=== PATIENT | female | born 1995 | race Caucasian/White ===

== ENCOUNTER 2017-06-26 22:29 | Observation (INO) | payer OTHER ==
[2017-06-26] MEDS ORDERED: IOPAMIDOL (ISOVUE-300) 100 ML BTL ONE (23:14)
[2017-06-26 23:34] LABS: % IMMATURE GRANULYOCYTES 0.2 % (0.0-1.1); ABSOLUTE IMMATURE GRANULOCYTES 0.01 10^3/uL (0.00-0.10); ADD DIFF? NO; ADD MORPH? NO; ADD SCAN? NO; ATYPICAL LYMPHOCYTE FLAG 20 (0-99); FRAGMENT RBC FLAG 0 (0-99); HEMATOCRIT 37.5 % (38.0-47.0); HEMOGLOBIN 12.6 g/dL (12.6-16.3); LEFT SHIFT FLG 0 (0-99); LIPEMIA HEMOLYSIS FLAG 80 (0-99); MEAN CELL HEMOGLOBIN 30.4 pg (27.9-34.1); MEAN CELL HEMOGLOBIN CONCENTR. 33.6 g/dL (32.4-36.7); MEAN CELL VOLUME 90.6 fL (81.5-99.8); MEAN PLATELET VOLUME 10.1 fL (8.7-11.7); PLATELET CLUMPS FLAG 10 (0-99); PLATELET COUNT 212 10^3/uL (150-400); RED BLOOD CELL COUNT 4.14 10^6/uL (4.18-5.33); RED CELL DISTRIBUTION WIDTH 13.1 % (11.5-15.2)
[2017-06-26 23:50] LABS: ALANINE AMINOTRANSFERASE 23 IU/L (9-52); ALBUMIN 4.7 g/dL (3.5-5.0); ALKALINE PHOSPHATASE 50 IU/L (38-126); ANION GAP 14 mEq/L (8-16); ASPARTATE AMINOTRANSFERASE 23 IU/L (14-46); BILIRUBIN,TOTAL 0.7 mg/dL (0.1-1.4); BILIRUBIN-CONJUGATED 0.2 mg/dL (0.0-0.5); BILIRUBIN-UNCONJUGATED 0.5 mg/dL (0.0-1.1); CALCIUM 9.5 mg/dL (8.5-10.4); CARBON DIOXIDE 22 mEq/l (22-31); CHLORIDE 104 mEq/L (97-110); CREATININE 0.7 mg/dL (0.6-1.0); GLOMERULAR FILTRATION RATE > 60; GLUCOSE 86 mg/dL (70-100); POTASSIUM 3.3 mEq/L (3.5-5.2); SODIUM 140 mEq/L (134-144); TOTAL PROTEIN 7.8 g/dL (6.3-8.2)
[2017-06-27] MEDS ORDERED: MAG HYDROX/AL HYDROX/SIMETH 30 ML UDCUP PO ONE (00:45)
[2017-06-27] MEDS ORDERED: LIDOCAINE 2% VISCOUS 15 ML UDCUP PO ONE (00:45)
[2017-06-27] MEDS ORDERED: LIDOCAINE 2% JELLY 5 ML TUBE ONE (00:47)
[2017-06-27] MEDS ORDERED: MAG HYDROX/AL HYDROX/SIMETH 30 ML UDCUP ONE (00:47)
--- NOTE | 2017-06-27 01:14 | EDPHY ---
H & P Stated Complaint: s/p bowel resection 6 weeks ago, sudden onset of abd pain 1845 Time Seen by Provider: 06/26/17 22:53 HPI/ROS: Chief Complaint: Abdominal pain HPI: 22-year-old female presenting with sudden onset abdominal pain at 6:30 a.m. this evening. Patient is approximately 6 weeks status post appendectomy which was complicated a week later by ischemic small-bowel found on exploratory laparotomy. Patient then subsequently developed a pulmonary embolus and is currently on anticoagulation. Patient states that her pain tonight started similarly to when she had her ischemic bowel. This was not appreciated on CT scan. She denies any fevers or chills. No nausea or vomiting. At worst pain is a 7/10. No diarrhea or constipation. She did have last bowel movement at 1 o'clock in the afternoon. ROS: 10 point Review of Systems is negative except as noted in the HPI. PMH: Appendectomy, PE, ischemic bowel, depression Medications on Xarelto, citalopram Social History: No smoking, no alcohol, no recreational drug use Family History: non-contributory Physical Exam: Gen: Awake, Alert, No Distress HEENT: Nose: no rhinorrhea Eyes: PERRLA, EOMI Mouth: Moist mucosa Neck: Supple, no JVD Chest: nontender, lungs clear to auscultation Heart: S1, S2 normal, no murmur Abd: Soft, moderate diffuse tenderness, mild Back: no CVA tenderness, no midline tenderness Ext: no edema, non-tender Skin: no rash Neuro: CN II-XII intact, Sensation grossly intact, Strength 5/5 in bilateral upper and lower extremities - Personal History LMP (Females 10-55): 1-7 Days Ago Current Tetanus Diphtheria and Acellular Pertussis (TDAP): Yes - Medical/Surgical History Hx Asthma: No Hx Chronic Respiratory Disease: No Hx Diabetes: No Hx Cardiac Disease: No Hx Renal Disease: No Hx Cirrhosis: No Hx Alcoholism: No Hx HIV/AIDS: No Hx Splenectomy or Spleen Trauma: No Other PMH: appendectomy- complications adhesions bowel resection, depression, PE 2017 - Social History Smoking Status: Never smoked Constitutional: Initial Vital Signs Temperature (C) 37 C 06/26/17 22:42 Heart Rate 63 06/26/17 22:42 Respiratory Rate 18 06/26/17 22:42 Blood Pressure 118/76 06/26/17 22:42 O2 Sat (%) 99 06/26/17 22:42 O2 Delivery Mode Room Air Allergies/Adverse Reactions: adhesive Allergy (Verified 06/26/17 22:41) Home Medications: Medication Instructions Recorded Citalopram 06/26/17 Xarelto 06/26/17 Medical Decision Making - Diagnostics Imaging Results: Imaging Impressions Abdomen CT 06/26/17 23:11 Impression: 1. Minimal prominence of jejunum, which could be related to ileus, without definite evidence of obstruction. 2. Small volume of ascites with minimal nonspecific mesenteric stranding, with with no visible abscess. 3. Moderate stool in the proximal colon. 4. 4 mm right lower lobe nodule. If the patient is a smoker or is high risk, unenhanced low dose chest CT for follow up in 12 months is considered optional. Otherwise, no further follow up is needed per Fleischner Society criteria. 5. Additional findings as above. Findings discussed with Blaise Thompson MD 06/27/2017 at 0:16. Imaging: Discussed imaging studies w/ technical training specialist Radiologist ED Course/Re-evaluation: Case discussed with Dr. Barker, general surgery. CT scan is negative. Given the patient's prior presentation for ischemic bowel which was not visualized on CT the parents are very concerned. Dr. Barker will see the patient in the emergency department. Patient be admitted to under observation to Dr. Barker for serial examinations and further evaluation. - Data Points Laboratory Results: Laboratory Results 06/26/17 23:20 06/26/17 23:20 06/27/17 06/26/17 06/26/17 00:50 23:20 23:20 WBC RBC Hgb Hct MCV MCH MCHC RDW Plt Count MPV Neut % (Auto) Lymph % (Auto) [place] % (Auto) Eos % (Auto) Baso % (Auto) Nucleat RBC Rel Count Absolute Neuts (auto) Absolute Lymphs (auto) Absolute Monos (auto) Absolute Eos (auto) Absolute Basos (auto) Absolute Nucleated RBC Immature Gran % Immature Gran # VBG Lactic Acid 0.9 mmol/L mmol/L (0.7-2.1) Sodium 140 mEq/L mEq/L (134-144) Potassium 3.3 mEq/L L mEq/L (3.5-5.2) Chloride 104 mEq/L mEq/L (97-110) Carbon Dioxide 22 mEq/l mEq/l (22-31) Anion Gap 14 mEq/L mEq/L (8-16) BUN 11 mg/dL mg/dL (7-23) Creatinine 0.7 mg/dL mg/dL (0.6-1.0) Estimated GFR > 60 Glucose 86 mg/dL mg/dL (70-100) Calcium 9.5 mg/dL mg/dL (8.5-10.4) Total Bilirubin 0.7 mg/dL mg/dL (0.1-1.4) Conjugated Bilirubin 0.2 mg/dL mg/dL (0.0-0.5) Unconjugated Bilirubin 0.5 mg/dL mg/dL (0.0-1.1) AST 23 IU/L IU/L (14-46) ALT 23 IU/L IU/L (9-52) Alkaline Phosphatase 50 IU/L IU/L (38-126) Total Protein 7.8 g/dL g/dL (6.3-8.2) Albumin 4.7 g/dL g/dL (3.5-5.0) Lipase 194 IU/L IU/L (23-300) Beta HCG, Qual NEGATIVE 06/26/17 23:20 WBC 5.51 10^3/uL 10^3/uL (3.80-9.50) RBC 4.14 10^6/uL L 10^6/uL (4.18-5.33) Hgb 12.6 g/dL g/dL (12.6-16.3) Hct 37.5 % L % (38.0-47.0) MCV 90.6 fL fL (81.5-99.8) MCH 30.4 pg pg (27.9-34.1) MCHC 33.6 g/dL g/dL (32.4-36.7) RDW 13.1 % % (11.5-15.2) Plt Count 212 10^3/uL 10^3/uL (150-400) MPV 10.1 fL fL (8.7-11.7) Neut % (Auto) 41.5 % % (39.3-74.2) Lymph % (Auto) 46.5 % H % (15.0-45.0) [place] % (Auto) 9.1 % % (4.5-13.0) Eos % (Auto) 2.2 % % (0.6-7.6) Baso % (Auto) 0.5 % % (0.3-1.7) Nucleat RBC Rel Count 0.0 % % (0.0-0.2) Absolute Neuts (auto) 2.29 10^3/uL 10^3/uL (1.70-6.50) Absolute Lymphs (auto) 2.56 10^3/uL 10^3/uL (1.00-3.00) Absolute Monos (auto) 0.50 10^3/uL 10^3/uL (0.30-0.80) Absolute Eos (auto) 0.12 10^3/uL 10^3/uL (0.03-0.40) Absolute Basos (auto) 0.03 10^3/uL 10^3/uL (0.02-0.10) Absolute Nucleated RBC 0.00 10^3/uL 10^3/uL (0-0.01) Immature Gran % 0.2 % % (0.0-1.1) Immature Gran # 0.01 10^3/uL 10^3/uL (0.00-0.10) VBG Lactic Acid Sodium Potassium Chloride Carbon Dioxide Anion Gap BUN Creatinine Estimated GFR Glucose Calcium Total Bilirubin Conjugated Bilirubin Unconjugated Bilirubin AST ALT Alkaline Phosphatase Total Protein Albumin Lipase Beta HCG, Qual Medications Given: Hydromorphone HCl (Dilaudid) 0.2 - 0.4 mg IVP Q4 PRN PRN Reason: Pain, Severe Unable to Take PO Stop: 07/07/17 01:20 Last Admin: 06/27/17 03:06 Dose: 0.4 mg Potassium Chloride/Dextrose/Sod Cl (D5w 1/2 Ns W/ 20 Kcl/L) 1,000 mls @ 125 mls /hr IV CONT GINO Stop: 12/24/17 01:29 Last Admin: 06/27/17 02:26 Dose: 1,000 mls Pantoprazole Sodium 40 mg/ (Sodium Chloride) 100 mls @ 200 mls/hr IV BID GINO Stop: 12/24/17 02:29 Last Admin: 06/27/17 02:27 Dose: 100 mls Ondansetron HCl (Zofran) 4 mg IVP Q4 PRN PRN Reason: Nausea/Vomiting, Use 1st Stop: 12/24/17 01:20 Last Admin: 06/27/17 02:04 Dose: 4 mg Discontinued Medications Al Hydroxide/Mg Hydroxide (Maalox Susp) 30 ml PO EDNOW ONE Stop: 06/27/17 00:46 Last Admin: 06/27/17 00:51 Dose: 30 ml Sodium Chloride (Ns) 1,000 mls @ 0 mls/hr IV ONCE ONE; Wide Open PRN Reason: Protocol Stop: 06/27/17 01:19 Last Admin: 06/27/17 01:20 Dose: 1,000 mls Pantoprazole Sodium 40 mg/ (Sodium Chloride) 100 mls @ 200 mls/hr IV BID GINO Stop: 12/24/17 01:29 Last Admin: 06/27/17 01:33 Dose: 100 mls Lidocaine (Lidocaine 2% Viscous) 5 ml PO EDNOW ONE Stop: 06/27/17 00:46 Last Admin: 06/27/17 00:51 Dose: 5 ml Morphine Sulfate (Morphine) 4 mg IVP EDNOW ONE Stop: 06/27/17 00:14 Last Admin: 06/27/17 00:16 Dose: 4 mg Departure - Departure Disposition: [facility] Inpatient Acute Clinical Impression: Abdominal pain Condition: Fair
[2017-06-27] MEDS ORDERED: NS 1,000 ML IV ONE (01:18)
[2017-06-27] MEDS ORDERED: PANTOPRAZOLE SODIUM 40 MG VIAL ONE (01:27)
[2017-06-27] MEDS ORDERED: NS 100 ML BAG IV ONE (01:27)
--- NOTE | 2017-06-27 01:28 | PDGENHP ---
History & Physical Chief Complaint: EPIGASTRIC INTERMITTEN SHARP STABBING PAINS History of Present Illness: 22 FEMALE 6 WEEKS SP LAP APPE COMPLICATED 5 DAYS LATER BY BOWELL IN SBO. NOW WITH A FEW HRS UPPER ABD PAIN. NO EMESIS, FEVER, DIARHEA OR TRAUMA. NO SX. PT HAS IUD IN PLACE. NORMAL BM TODAY. CT NONDIAGNOSTIC. WBC AND LACTATE WNL. AFEBRILE Pertinent Past, Social, Family History: APPE AND SMALL BOWELL RESECTION. DEPRESSION. NKA. MEDS CITALOPRAM. ROS - ON 10 PT REVIEW. NONSMOKER. NO RECENT ETOH. FAM HX - Relevant Physical Exam: HEENT: NO ICTERUS OR ADENOPATHY, NO ORAL LESIONS. PEERLA , NECK SUPPLE. CHEST CLEAR. COR RR. ABD SOFT, +BS, MILDLY TENDER WO PERITONEAL SX. PELVIC DEFERRED. EXTREM OK. SKIN OK. NEURO PHYSIOLOGIC. PSYCH ORIENTED, ALERT, APPROPRIATE Cardiorespiratory Assessment: COMPLICATED HX WITH UPPER ABD PAIN OF UNCEERTAIN ETIOLOGY. CONSIDER GASTRITIS OR PEPTIC DISEASE. PLAN IVS, OBS,PROTONIX, FU TESTS/ CONSIDER EGD
[2017-06-27] MEDS ORDERED: PANTOPRAZOLE SODIUM 40 MG in NS 100 ML IV SCH (01:30)
--- NOTE | 2017-06-27 01:39 | SOAPPROG ---
SOAP Progress Note Assessment/Plan: Assessment: ADDENDUM TO HX: PT ON XARELTO FOR PE Plan:HOLD FOR NOW 06/27/17 01:38 Objective: Vital Signs Temp Pulse Resp BP Pulse Ox 37 C 52 L 16 108/53 L 96 06/26/17 22:42 06/27/17 00:51 06/27/17 00:51 06/27/17 00:51 06/27/17 00:51 ICD10 Worksheet Patient Problems: Problems Problem Status Onset Abdominal pain Acute
[2017-06-27] MEDS ORDERED: ONDANSETRON 4 MG/2 ML VIAL ONE ×2 (02:03→12:57)
[2017-06-27] MEDS: ONDANSETRON 4 MG/2 ML VIAL IVP PRN ×3 (02:04→10:19)
[2017-06-27] MEDS: D5W 1/2 NS W/ 20 KCl/L 1,000 ML IV SCH ×3 (02:26→20:08)
[2017-06-27] MEDS: PANTOPRAZOLE SODIUM 40 MG in NS 100 ML IV SCH ×3 (02:27→20:08)
[2017-06-27] MEDS: HYDROmorphONE/DILAUDID 1 MG/ML INJ IVP PRN ×4 (03:06→14:26)
[2017-06-27 05:09] LABS: % IMMATURE GRANULYOCYTES 0.3 % (0.0-1.1); ABSOLUTE IMMATURE GRANULOCYTES 0.02 10^3/uL (0.00-0.10); ADD DIFF? NO; ADD MORPH? NO; ADD SCAN? NO; ATYPICAL LYMPHOCYTE FLAG 0 (0-99); FRAGMENT RBC FLAG 0 (0-99); HEMATOCRIT 35.5 % (38.0-47.0); HEMOGLOBIN 11.7 g/dL (12.6-16.3); LEFT SHIFT FLG 0 (0-99); LIPEMIA HEMOLYSIS FLAG 80 (0-99); MEAN CELL HEMOGLOBIN 30.2 pg (27.9-34.1); MEAN CELL VOLUME 91.5 fL (81.5-99.8); MEAN PLATELET VOLUME 10.1 fL (8.7-11.7); PLATELET CLUMPS FLAG 0 (0-99); PLATELET COUNT 183 10^3/uL (150-400); RED BLOOD CELL COUNT 3.88 10^6/uL (4.18-5.33); RED CELL DISTRIBUTION WIDTH 13.1 % (11.5-15.2)
[2017-06-27 05:33] LABS: ALANINE AMINOTRANSFERASE 25 IU/L (9-52); ALBUMIN 3.8 g/dL (3.5-5.0); ALKALINE PHOSPHATASE 40 IU/L (38-126); AMYLASE < 30 IU/L (30-110); ASPARTATE AMINOTRANSFERASE 19 IU/L (14-46); BILIRUBIN,TOTAL 0.7 mg/dL (0.1-1.4); BILIRUBIN-CONJUGATED 0.2 mg/dL (0.0-0.5); BILIRUBIN-UNCONJUGATED 0.5 mg/dL (0.0-1.1); TOTAL PROTEIN 6.7 g/dL (6.3-8.2)
--- NOTE | 2017-06-27 09:58 | SOAPPROG ---
SOAP Progress Note Assessment/Plan: Assessment: 22yo female with recent history of lap appy complicated by bowel in SBO 5 days later, presenting now with upper abdominal pain. Abd XR demonstrating ileus Afebrile WBC wNL Will consult GI NPO Cont pain control D/c NC O2, sating 99% on 1L S: Patient complaining of nausea with emesis today. Vomit is clear and spit- like. Passing gas, no BM. Pain controlled. O: Afebrile Lying in bed, NAD MMM Lungs CTAB, no increased WOB RRR Abdomen softly distended. No guarding. Mild TTP. +BS Objective: Vital Signs Temp Pulse Resp BP Pulse Ox 36.6 C 61 16 116/73 100 06/27/17 08:00 06/27/17 08:00 06/27/17 08:00 06/27/17 08:00 06/27/17 08:00 Laboratory Results 06/27/17 04:49 06/26/17 06/27/17 06/28/17 05:59 05:59 05:59 Intake Total 1000 Output Total 100 Balance 1000 -100 ICD10 Worksheet Patient Problems: Problems Problem Status Onset Abdominal pain Acute
--- NOTE | 2017-06-27 10:03 | ASMTCASEMG ---
Living Arrangements What is your living Answers: WIth Both Parents/1 Home arrangement? Who do you live with? Type Of Residence What kind of residence do Answers: House you live in? Discharge Plan Comments Coordination Status Comments Notes: Patient is a 22yo woman who lives with her parents in [facility]. She was admitted for abdominal pain. Patient had an appendectomy 6 weeks ago which was complicated by ischemic small bowel. She then developed a pulmonary embolus and is currently on anticoagulation. Patient admitted under observation with Dr. Barker. CM will follow for d/c needs. Date Signed: 06/27/2017 10:03 AM Electronically Signed By:Melissa Sagastume
[2017-06-27] MEDS ORDERED: LR 1,000 ML IV ONE (11:36)
[2017-06-27] MEDS ORDERED: MIDAZOLAM 2 MG/2 ML VIAL ONE (12:04)
[2017-06-27] MEDS ORDERED: fentaNYL 100 MCG/2 ML INJ ONE (12:06)
[2017-06-27] MEDS ORDERED: LIDOCAINE 2% 100 MG/5 ML SYR ONE (12:07)
[2017-06-27] MEDS ORDERED: PROPOFOL/EMULSION 500 MG/50 ML BOTTLE IV ONE (12:07)
--- NOTE | 2017-06-27 12:14 | PDANEPAE ---
ANE Past Medical History - Pulmonary History Hx Oxygen in Use at Home: No Hx Sleep Apnea: No Sleep Apnea Screening Result - Last Documented: Negative - Endocrine History Hx Diabetes: No - Chronic Pain History Chronic Pain: No ANE Review of Systems Review of Systems: ANE Patient History - Allergies Allergies/Adverse Reactions: adhesive Allergy (Verified 06/26/17 22:41) - Home Medications Home Medications: Acetaminophen [Tylenol 325mg (*)] 650 mg PO DAILY PRN 06/27/17 [Last Taken 06/26 21:00] Citalopram [CeleXA] 20 mg PO DAILY 06/27/17 [Last Taken 06/26/17] Herbals/Supplements -Info Only 1 ea PO DAILY 06/27/17 [Last Taken Unknown] Multivitamins [Multivitamin (*)] 1 each PO DAILY 06/27/17 [Last Taken Unknown] Rivaroxaban [Xarelto 10mg (*)] 20 mg PO DAILY 06/27/17 [Last Taken 06/26/17 19: 00] - NPO status NPO Since - Liquids (Date): 06/26/17 NPO Since - Liquids (Time): 16:30 NPO Since - Solids (Date): 06/26/17 NPO Since - Solids (Time): 16:30 - Smoking Hx Smoking Status: Never smoked ANE Labs/Vital Signs - Labs Result Diagrams: 06/27/17 04:49 06/26/17 23:20 - Vital Signs Blood Pressure: 127/91 Heart Rate: 77 Respiratory Rate: 20 O2 Sat (%): 99 Height: 167.64 cm Weight: 54.431 kg ANE Physical Exam - Airway Neck exam: FROM Mallampati Score: Class 2 Mouth exam: normal dental/mouth exam - Pulmonary Pulmonary: no respiratory distress - Cardiovascular Cardiovascular: regular rate and rhythym - ASA Status ASA Status: II ANE Anesthesia Plan Total IV Anesthesia: Yes Urgent/Emergent Case: Nory francisco completed preop but documented later for safe timely pt care
[2017-06-27] MEDS ORDERED: ONDANSETRON 4 MG/2 ML VIAL IVP PRN (12:22)
[2017-06-27] MEDS ORDERED: NALOXONE HCL 0.4 MG/ML INJ IVP PRN (12:22)
--- NOTE | 2017-06-27 12:22 | POSTANESTH ---
Post Anesthetic Evaluation Cardiovascular Status: Normal, Stable Respiratory Status: Normal, Stable Level of Consciousness/Mental Status: Mildly Sleepy, Arousable Pain Control: Adequate, Prn Tx Ordered Nausea/Vomiting Control: Adequate, Prn Tx Ordered Complications Possibly Related to Anesthesia: None Noted
--- NOTE | 2017-06-27 13:00 | GCON ---
[f rep st] CONSULTATION CONSULTATIVE NOTE CHIEF COMPLAINT: A 22-year-old woman with epigastric pain. HISTORY OF PRESENT ILLNESS: I have been asked to see this patient in consultation by Dr. Geronimo Barker for evaluation of upper abdominal pain. This 22-year-old woman presented to the emergency department with acute onset of abdominal pain on the day of admission. She is 6 weeks post appendectomy. Surgery was performed at [place]. Surgery was complicated by episode of ischemic small bowel requiring exploratory laparotomy and small bowel resection. She subsequently developed a pulmonary embolus and has been on Xarelto. She had done fairly well until the day of admission, when she started having pain similar to when she had ischemic bowel. She had a CT scan that was unremarkable. She had difficulty eating with nausea and some retching. Pain was severe and described as 7/10. She had no associated lower GI symptoms, no diarrhea or constipation. She did have an abdominal x-ray that showed a possible mild ileus with air-fluid levels in small bowel in the left upper quadrant of the abdomen. There was no evidence of pneumoperitoneum. CT scan of the abdomen revealed minimal prominence of the jejunum related to ileus. No evidence of obstruction. Small amount of ascites. Nonspecific mesenteric stranding with no visible abscess. Moderate stool in the proximal colon. There was a 4 mm right lower lobe nodule. Otherwise unremarkable CT scan findings. The patient was seen by Dr. Barker, did not feel that she had acute abdomen to warrant surgery at this point. Asked to see patient for further evaluation of upper abdominal pain. PAST MEDICAL HISTORY: Remarkable for appendectomy, PE, ischemic bowel, depression. MEDICATIONS: Prior to admission included Xarelto and Celexa. Medicines in the hospital: Dilaudid, Zofran, pantoprazole. SOCIAL HISTORY: Nonsmoker, nondrinker. No recreational drug use. FAMILY HISTORY: Negative. ALLERGIES: No known drug allergies. REVIEW OF SYSTEMS: Negative for 10 systems other than mentioned in HPI. PHYSICAL EXAM: VITAL SIGNS: 116/73, heart rate 61, respiratory rate 16, 100% sat on room air. 36.6. GENERAL: Very pleasant woman in no acute distress. HEENT: Normocephalic, atraumatic. EOMI. NECK: Supple. No cervical adenopathy. No thyromegaly. LUNGS: Clear. CARDIAC: Normal S1, S2. ABDOMEN : Soft, some guarding with mild diffuse tenderness. Minimal to no significant bowel sounds. EXTREMITIES: Without clubbing, cyanosis, edema. SKIN: Warm, dry, intact. NEURO: Nonfocal. Mental status: Alert and oriented x3 with normal affect. LABORATORY DATA: White count of 7.99, hemoglobin 11.7, hematocrit 35.5. Serum chemistries: Serum sodium 140, potassium 3.3, chloride 104, CO2 22. BUN of 11 , creatinine 0.7, total bilirubin 0.7. AST 23, ALT of 23, alkaline phosphatase of 50. Amylase was less than 30. Lipase was 194. Beta hCG was negative. IMPRESSION: A 22-year-old woman with recent surgical history with appendectomy complicated by small bowel ischemia and small bowel resection. Also complicated by pulmonary embolus. Patient with upper abdominal pain, discomfort , nausea with vomiting. No hematemesis. No symptoms of bleeding. Unclear etiology of upper abdominal symptoms. RECOMMENDATIONS: We will proceed with a diagnostic endoscopy for evaluation for upper tract disease, ulcerations contributing to symptoms. The patient is on anticoagulation. We will not perform any biopsies. Xarelto was held yesterday. We will do minimal intervention and proceed with a diagnostic upper endoscopy only. The patient will be scheduled for EGD later today. Thank you for allowing me to participate in the care of this patient. /[id number]/MODL MTDD
[2017-06-27] MEDS ORDERED: PROMETHAZINE HCL 25 MG/ML INJ IVP PRN (14:22)
--- NOTE | 2017-06-27 15:09 | GPN ---
[f rep st] PROCEDURE NOTE PROCEDURE: Esophagogastroduodenoscopy. PREOPERATIVE DIAGNOSES: 1. Epigastric pain. 2. Nausea, vomiting. POSTOPERATIVE DIAGNOSIS: Normal upper endoscopy. INDICATIONS: A 22-year-old woman with epigastric pain, nausea, and vomiting. Patient with past surg ical history with recent appendectomy. Surgery was complicated by small bowel ischemia. She had a s econdary surgery with small bowel resection. She also developed a PE and has been on anticoagulation , Xarelto. She was home, but started having problems with upper abdominal pain. It was sharp, stabb ing, constant. No particular alleviating factors. Difficulty eating with retching and nausea. CT s can was essentially unremarkable. Abdominal x-ray showed jejunal ileus. She presents now for endosc opy for diagnostic purposes. PHYSICAL EXAMINATION: VITAL SIGNS: Stable. LUNGS: Clear. CARDIAC: Normal S1, S2 without murmur. PERMIT: Procedure was explained to the patient. The risks and benefits of the procedure were outlin ed to the patient. Informed consent was obtained. PREOPERATIVE MEDICATIONS: Per Anesthesia. FINDINGS OF PROCEDURE: Patient was placed in the left lateral decubitus position. The GIF-180 video scope was passed in the oropharynx under direct visualization. The proximal esophagus was normal. GE junction at 40 cm. The endoscope was passed in the stomach with normal antrum and body. The endo scope was passed through the pylorus and 1st and 2nd portion of the duodenum. Duodenal sweep was nor mal. Endoscope was brought back in the stomach. Retroflexed view revealed a normal angularis, fundu s, and cardia. Endoscope was un-retroflexed and withdrawn. IMPRESSION: Normal upper endoscopy. No clear source of the patient's abdominal pain. Questionable ileus. RECOMMENDATIONS: 1. Further care per Surgery. 2. Continue IV hydration. 3. Antiemetics, consider addition of Reglan IV. Thank you for allowing me to participate in the care of this patient. /[id number]/MODL
--- NOTE | 2017-06-27 17:48 | SOAPPROG ---
SOAP Progress Note Assessment/Plan: Assessment: ADDENDUM TO HX: PT ON XARELTO FOR PE Plan:HOLD FOR NOW 06/27/17 01:38 06/27/17 17:47 PATIENT FEELS MUCH BETTER THIS AFTERNOON WITH NAUSEA CONTROL WITH PHENERGAN/EGD WAS NEGATIVE FOR ANY ESOPHAGEAL GASTRIC OR DUODENAL ABNORMALITIES WILL CONTINUE TO OBSERVE/UNCLEAR ETIOLOGY OF HER PAIN AT THIS POINT Objective: Vital Signs Temp Pulse Resp BP Pulse Ox 36.9 C 70 16 102/69 96 06/27/17 15:49 06/27/17 15:49 06/27/17 15:49 06/27/17 15:49 06/27/17 15:49 Laboratory Results 06/27/17 04:49 06/26/17 06/27/17 06/28/17 05:59 05:59 05:59 Intake Total 1000 675 Output Total 100 Balance 1000 575 ICD10 Worksheet Patient Problems: Problems Problem Status Onset Abdominal pain Acute
[2017-06-27] MEDS ORDERED: diphenhydrAMINE 25 MG CAP PO PRN (21:20)
--- NOTE | 2017-06-28 08:34 | SOAPPROG ---
SOAP Progress Note Assessment/Plan: Assessment/plan: 22 Y F admitted with sharp intermittent epigastric abd pain. s/ p lap appy complicated by ischemic bowel 5 days later, s/p laparotomy and bowel resection at outside hospital. Has been on xarelto for PE. Normal EGD yesterday. Pain resolved now. No N/V. Passing gas. Abdominal exam is benign. D/w'ed Dr. Barker this am and will get SBFT. If normal, may be able to advance diet. Dispo: pending SBFT findings. S: see above O: alert, nad mmm, no jaundice no wob rrr abd soft, NT, well healed laparotomy scar 06/28/17 08:31 Objective: Vital Signs Temp Pulse Resp BP Pulse Ox 36.9 C 62 16 94/46 L 95 06/28/17 07:43 06/28/17 07:43 06/28/17 07:43 06/28/17 07:43 06/28/17 07:43 Laboratory Results 06/27/17 04:49 06/27/17 06/28/17 06/29/17 05:59 05:59 05:59 Intake Total 1000 2775 Output Total 100 Balance 1000 5165 ICD10 Worksheet Patient Problems: Problems Problem Status Onset Abdominal pain Acute
[2017-06-28] MEDS: PANTOPRAZOLE SODIUM 40 MG in NS 100 ML IV SCH ×2 (09:14→20:05)
[2017-06-28] MEDS: D5W 1/2 NS W/ 20 KCl/L 1,000 ML IV SCH ×2 (09:14→20:05)
--- NOTE | 2017-06-28 10:46 | SOAPPROG ---
SOAP Progress Note Assessment/Plan: Assessment: ADDENDUM TO HX: PT ON XARELTO FOR PE Plan:HOLD FOR NOW 06/27/17 01:38 06/27/17 17:47 PATIENT FEELS MUCH BETTER THIS AFTERNOON WITH NAUSEA CONTROL WITH PHENERGAN/EGD WAS NEGATIVE FOR ANY ESOPHAGEAL GASTRIC OR DUODENAL ABNORMALITIES WILL CONTINUE TO OBSERVE/UNCLEAR ETIOLOGY OF HER PAIN AT THIS POINT 06/28/17 10:44 seen with neha buck pa/ much improved/ abd soft/ some flatus/ plan sbft and if ok advance diet Objective: Vital Signs Temp Pulse Resp BP Pulse Ox 36.9 C 62 16 94/46 L 95 06/28/17 07:43 06/28/17 07:43 06/28/17 07:43 06/28/17 07:43 06/28/17 07:43 Laboratory Results 06/27/17 04:49 06/27/17 06/28/17 06/29/17 05:59 05:59 05:59 Intake Total 1000 2775 50 Output Total 100 600 Balance 1000 5492 -345 ICD10 Worksheet Patient Problems: Problems Problem Status Onset Abdominal pain Acute
[2017-06-29] MEDS: PANTOPRAZOLE SODIUM 40 MG in NS 100 ML IV SCH (09:59)
--- NOTE | 2017-06-29 11:02 | SOAPPROG ---
SOAP Progress Note Assessment/Plan: Assessment: 22yo female with recent history of lap appy complicated by bowel in SBO 5 days later s/p laparotomy and bowel resection at an outside hospital, presented for this admission with upper abdominal pain. On Xerelto for PE SBFT showing ilieus without focal stricture Afebrile WBC wNL Normal diet Activity as tolerated Dispo: to home today. Note given excusing her from school for her admission. S: No complaints today. Denies pain and nausea Passing gas, no BM. Pain controlled. O: Afebrile Lying in bed, NAD MMM Lungs CTAB, no increased WOB RRR Abdomen soft. No guarding. +BS Objective: Vital Signs Temp Pulse Resp BP Pulse Ox 36.9 C 58 L 16 102/65 99 06/29/17 08:39 06/29/17 08:39 06/29/17 08:39 06/29/17 08:39 06/29/17 08:39 Laboratory Results 06/27/17 04:49 06/28/17 06/29/17 06/30/17 05:59 05:59 05:59 Intake Total 2775 500 Output Total 100 1900 Balance 2675 -1400 ICD10 Worksheet Patient Problems: Problems Problem Status Onset Abdominal pain Acute
[2017-06-29 11:15] VITALS: BP 100/58; PULSE 59; RESP 14; TEMP 98.8; O2SAT 98
--- NOTE | 2017-06-29 11:20 | ASMTCMCOM ---
CM Note CM Note Notes: No needs identified, pt to dc home w/support of parents when medically stable. CM available for any changes. Date Signed: 06/29/2017 11:19 AM Electronically Signed By:Yanira Macedo RN
--- NOTE | 2017-06-29 14:19 | ASDISCHSUM ---
Discharge Information Plan Status:Home with No Needs Medically Cleared to Leave: Discharge Date:06/29/2017 11:40 AM CM D/C Disposition:Home, Routine, Self-Care ADT D/C Disposition:Home, Routine, Self-Care Projected Discharge Date:06/29/2017 11:40 AM Transportation at D/C:Family Discharge Delay Reason: Follow-Up Date:06/29/2017 11:40 AM Discharge Slot: Final Diagnosis: Placement Information Patient Contact Information Contact Name:DEMETRIA Relationship:Father Address:[address] Work Phone: City:[place] Alternate Phone: [facility]/Zip Code:[place] [address] Email: Financial Information Financial Class:HMO and PPO Plans Primary Plan Desc:[facility] Primary Plan Number:[id number] Secondary Plan Desc: Secondary Plan Number: Assessment Information [facility] Initial CM Assessment Living Arrangements What is your living Answers: WIth Both Parents/1 Home arrangement? Who do you live with? Type Of Residence What kind of residence do Answers: House you live in? Discharge Plan Comments Coordination Status Comments Notes: Patient is a 22yo woman who lives with her parents in [facility]. She was admitted for abdominal pain. Patient had an appendectomy 6 weeks ago which was complicated by ischemic small bowel. She then developed a pulmonary embolus and is currently on anticoagulation. Patient admitted under observation with Dr. Barker. CM will follow for d/c needs. Date Signed: 06/27/2017 10:03 AM Electronically Signed By:Melissa Sagastume LCSW [facility] CM Progress Note CM Note CM Note Notes: No needs identified, pt to dc home w/support of parents when medically stable. CM available for any changes. Date Signed: 06/29/2017 11:19 AM Electronically Signed By:Yanira Macedo RN Intervention Information
== END 2017-06-29 11:40 | disposition home or self-care (01) ==
LOC: F3E 06-27 02:13
PROVIDERS: ADMIT Surgery; ATTEND Surgery
PROC: 0DJ08ZZ Inspection of Upper Intestinal Tract, Via Natural or Artificial Opening Endoscopic (ICD-10-PCS; principal; 2017-06-27 13:30)
DX: R10.13 Epigastric pain (principal); F32.9 Major depressive disorder, single episode, unspecified; Z86.711 Personal history of pulmonary embolism; Z79.01 Long term (current) use of anticoagulants
CPT/HCPCS: 43235; 74020; 74177; 74250; 96361; 96365; 96375; 99285; G0378; J1170; J2001; J2250; J2405; J2704; J3010; Q9967

== ENCOUNTER 2018-01-25 12:59 | Emergency (ER) | payer OTHER ==
[2018-01-25] MEDS ORDERED: NS 1,000 ML IV ONE ×2 (13:23)
[2018-01-25] MEDS ORDERED: ONDANSETRON 4 MG/2 ML VIAL IVP ONE (13:23)
--- NOTE | 2018-01-25 13:25 | EDPHY ---
H & P Stated Complaint: abd pain Time Seen by Provider: 01/25/18 13:22 HPI/ROS: CHIEF COMPLAINT: Abdominal pain nausea vomiting HISTORY OF PRESENT ILLNESS: 22-year-old female complaining of epigastric abdominal pain, nausea, vomiting since noon today after eating sandwich. Feels similar to prior prior ileus. She has medical history significant for remote history of laparoscopic appendectomy complicated by small bowel ischemia requiring 2nd operation for bowel resection at [facility]. No melena or hematochezia. No hematemesis. No fever or chills. No trauma. No back or flank pain. No urinary abnormality. REVIEW OF SYSTEMS: A ten point review of systems was performed and is negative with the exception of the items mentioned in the HPI PAST MEDICAL & SURGICAL HISTORY: Appendectomy, bowel resection, ileus SOCIAL HISTORY:Nonsmoker student PHYSICAL EXAM (Prior to examination, patient consented to physical exam, hands were washed and my usual and customary physical exam procedures followed) 1) GENERAL: Well-developed, well-nourished, alert and oriented. Appears uncomfortable 2) HEAD: Normocephalic, atraumatic 3) HEENT: Pupils equal, round, reactive to light bilaterally. Sclera anicteric. Nasopharynx, oropharynx, clear, no lesions. Moist mucous membranes Ears bilaterally with normal tympanic membranes. 4) NECK: Full range of motion, no meningeal signs. 5) LUNGS: Clear auscultation bilaterally, no wheezes, no rhonchi, no retractions. 6) HEART: Regular rate and rhythm, no murmur, no heave, no gallop. 7) ABDOMEN: Tender to palpation epigastrium and left upper quadrant, negative McBurney's, negative Henry's, negative Rovsing's, negative peritoneal sign, 8) MUSCULOSKELETAL: Moving all extremities, no focal areas of tenderness, no obvious trauma. No peripheral edema or discoloration. 9) BACK: No CVA tenderness, no midline vertebral tenderness, no fluctuance, no step-off, no obvious trauma, no visual or palpable abnormality. 10) SKIN: No rash, no petechiae. 11) Psychiatric: Patient is oriented X 3, there is no agitation. DIFFERENTIAL DIAGNOSIS: In no particular include but limited to acute pancreatitis, bowel obstruction, ileus - Personal History LMP (Females 10-55): 8-14 Days Ago Current Tetanus/Diphtheria Vaccine: Unsure Current Tetanus Diphtheria and Acellular Pertussis (TDAP): Unsure - Medical/Surgical History Hx Asthma: No Hx Chronic Respiratory Disease: No Hx Diabetes: No Hx Cardiac Disease: No Hx Renal Disease: No Hx Cirrhosis: No Hx Alcoholism: No Hx HIV/AIDS: No Hx Splenectomy or Spleen Trauma: No Other PMH: appendectomy- complications adhesions bowel resection, depression, PE 2017, SBO - Social History Smoking Status: Never smoked Constitutional: Initial Vital Signs Temperature (C) 36.8 C 01/25/18 13:11 Heart Rate 71 01/25/18 13:11 Respiratory Rate 16 01/25/18 13:11 Blood Pressure 95/70 L 01/25/18 13:11 O2 Sat (%) 98 01/25/18 13:11 O2 Delivery Mode Room Air Allergies/Adverse Reactions: adhesive Allergy (Verified 01/25/18 13:09) Home Medications: Medication Instructions Recorded Acetaminophen [Tylenol 325mg (*)] 650 mg PO Q6H PRN 06/27/17 Herbals/Supplements -Info Only 1 ea PO DAILY 06/27/17 Multivitamins [Multivitamin (*)] 1 each PO DAILY 06/27/17 Cholecalciferol Vit D3 [Vitamin D3 1,000 units PO DAILY 01/25/18 (*)] Citalopram Hydrobromide [Celexa] 40 mg PO DAILY 01/25/18 Medical Decision Making - Diagnostics Imaging Results: Imaging Impressions Abdomen CT 01/25/18 13:58 Impression: 1. Early or partial small bowel obstruction in the jejunum, left upper quadrant of the abdomen. 2. Small amount of free fluid in the pelvis. 3. Please see above findings. Findings and recommendations discussed with Emergency Department physician, Angel Fnin at 1441 hour, 01/25/2018. Final report concurs with initial preliminary interpretation. Abdomen Ultrasound 01/25/18 13:58 Impression: Normal gallbladder. Abdomen X-Ray 01/25/18 14:42 Impression: Intragastric tube position Images reviewed by myself ED Course/Re-evaluation: 1:25 p.m.: I reviewed the patient's old medical records are significant for prior history of bowel resection, ileus, appendectomy history. Will obtain diagnostic studies and likely CT imaging. 2:40 p.m.: Patient is followed by Dr. Trace Barker. The patient is noted to have small bowel obstruction on CT imaging. At this time I spoke with HAILY Yousif who comes to the patient emergency department, patient will have NG tube placed. Care of patient under supervision of secondary supervising physician Dr Lau . 3:11 p.m.: Patient has been evaluated by HAILY Yousif. At this time the father requests whether the patient be transferred to [facility] under the care of Dr. Hilda Pabon , the surgeon who initially performed the patient's appendectomy a few years ago. Dr. Pabon will be contacted. Father has been informed that I will need to find an accepting physician first, and the patient will necessitate ambulance transportation which will likely result in additional charges to [facility] which may be significant. Father verbalized understanding and acceptance of this I requested we proceed with attempts at transfer. 3:41 p.m.: Dr Hilda Pabon has been paged. No response at this time. At this time the father provided me the cell phone number of Dr Pabon with whom I left a voicemail. 4:01 p.m.: No response from Dr Pabon. The patient's father, patient's mother, the ER simulation technician and I have left multiple separate messages and pages to this physician for the past 40 min and there is no response. Discussed this with father he requested I speak with the on-call surgeon for [facility] 4:10 p.m.: Consultation with [facility] transfer Center who will page the on- call surgeon Dr. Hummel at [facility] 4:17 p.m.: Phone consultation with Dr. Hummel, on-call surgeon at [facility], who accepts patient for transfer as a direct admission. Radiographic images will be pushed to the system. - Data Points Laboratory Results: Laboratory Results 01/25/18 13:26 01/25/18 13:26 01/25/18 01/25/18 01/25/18 13:26 13:26 13:26 WBC 5.76 10^3/uL 10^3/uL (3.80-9.50) RBC 4.51 10^6/uL 10^6/uL (4.18-5.33) Hgb 13.5 g/dL g/dL (12.6-16.3) Hct 39.9 % % (38.0-47.0) MCV 88.5 fL fL (81.5-99.8) MCH 29.9 pg pg (27.9-34.1) MCHC 33.8 g/dL g/dL (32.4-36.7) RDW 12.2 % % (11.5-15.2) Plt Count 208 10^3/uL 10^3/uL (150-400) MPV 9.7 fL fL (8.7-11.7) Neut % (Auto) 59.6 % % (39.3-74.2) Lymph % (Auto) 32.1 % % (15.0-45.0) [place] % (Auto) 6.6 % % (4.5-13.0) Eos % (Auto) 1.0 % % (0.6-7.6) Baso % (Auto) 0.7 % % (0.3-1.7) Nucleat RBC Rel Count 0.0 % % (0.0-0.2) Absolute Neuts (auto) 3.43 10^3/uL 10^3/uL (1.70-6.50) Absolute Lymphs (auto) 1.85 10^3/uL 10^3/uL (1.00-3.00) Absolute Monos (auto) 0.38 10^3/uL 10^3/uL (0.30-0.80) Absolute Eos (auto) 0.06 10^3/uL 10^3/uL (0.03-0.40) Absolute Basos (auto) 0.04 10^3/uL 10^3/uL (0.02-0.10) Absolute Nucleated RBC 0.00 10^3/uL 10^3/uL (0-0.01) Immature Gran % 0.0 % % (0.0-1.1) Immature Gran # 0.00 10^3/uL 10^3/uL (0.00-0.10) Sodium 141 mEq/L mEq/L (135-145) Potassium 3.7 mEq/L mEq/L (3.5-5.2) Chloride 103 mEq/L mEq/L (97-110) Carbon Dioxide 25 mEq/l mEq/l (22-31) Anion Gap 13 mEq/L mEq/L (8-16) BUN 15 mg/dL mg/dL (7-23) Creatinine 0.6 mg/dL mg/dL (0.6-1.0) Estimated GFR > 60 Glucose 120 mg/dL H mg/dL (70-100) Calcium 9.2 mg/dL mg/dL (8.5-10.4) Total Bilirubin 0.7 mg/dL mg/dL (0.1-1.4) Conjugated Bilirubin 0.3 mg/dL mg/dL (0.0-0.5) Unconjugated Bilirubin 0.4 mg/dL mg/dL (0.0-1.1) AST 82 IU/L H IU/L (14-46) ALT 69 IU/L H IU/L (9-52) Alkaline Phosphatase 48 IU/L IU/L (38-126) Total Protein 8.0 g/dL g/dL (6.3-8.2) Albumin 4.6 g/dL g/dL (3.5-5.0) Lipase 103 IU/L IU/L (23-300) Beta HCG, Qual NEGATIVE Medications Given: Discontinued Medications Sodium Chloride (Ns) 1,000 mls @ 0 mls/hr IV ONCE ONE PRN Reason: Wide Open Stop: 01/25/18 13:24 Last Admin: 01/25/18 13:29 Dose: 1,000 mls Sodium Chloride (Ns) 1,000 mls @ 0 mls/hr IV EDNOW ONE; Wide Open PRN Reason: Protocol Stop: 01/25/18 13:24 Last Admin: 01/25/18 13:30 Dose: Not Given Morphine Sulfate (Morphine) 4 mg IVP EDNOW ONE Stop: 01/25/18 14:01 Last Admin: 01/25/18 14:03 Dose: 4 mg Ondansetron HCl (Zofran) 4 mg IVP EDNOW ONE Stop: 01/25/18 13:24 Last Admin: 01/25/18 13:29 Dose: 4 mg Departure - Departure Disposition: [facility] Clinical Impression: Small bowel obstruction Condition: Fair
[2018-01-25 13:34] LABS: PLATELET COUNT 208 10^3/uL (150-400)
[2018-01-25] MEDS ORDERED: IOPAMIDOL (ISOVUE-300) 100 ML BTL ONE (14:03)
[2018-01-25 18:52] VITALS: BP 101/67
== END 2018-01-25 18:52 | disposition short-term general hospital (02) ==
LOC: UNDOADMOB 14:46
DX: K56.699 Other intestinal obstruction unspecified as to partial versus complete obstruction (principal); E86.9 Volume depletion, unspecified; Z90.49 Acquired absence of other specified parts of digestive tract
CPT/HCPCS: 96374; J2270; J2405; Q9967